=== PATIENT | female | born 1995 | race Caucasian/White ===

== ENCOUNTER 2017-07-14 13:40 | Emergency (ER) | payer BC ==
[~2017-07-14 13:40] MED LIST: Amoxicillin/Clavulanate K 875-125 MG Tab ONE
== END 2017-07-14 14:39 | disposition home or self-care (01) ==
LOC: MW.ED 13:40
DX: K04.7 Periapical abscess without sinus (principal)
CPT/HCPCS: 99283; A9270

== ENCOUNTER 2021-12-04 03:39 | Inpatient (IN) | payer BC ==
[2021-12-04] MEDS ORDERED: Lidocaine 1% 50 ML MDV INJECT PRN (04:00)
[2021-12-04] MEDS ORDERED: Sodium Chloride 0.9% 2.5 ML Syringe FLUSH PRN (04:00)
[2021-12-04] MEDS ORDERED: Misoprostol 200 MCG Tab PO PRN (04:00)
[2021-12-04] MEDS ORDERED: Water For Irrigation,Sterile 1,000 ML Container IRR PRN (04:00)
[2021-12-04] MEDS ORDERED: Methylergonovine 0.2 MG/1 ML Amp IM PRN (04:00)
[2021-12-04] MEDS ORDERED: Sodium Chloride 0.9% 10 ML Syringe FLUSH PRN (04:00)
[2021-12-04] MEDS ORDERED: Oxytocin/0.9 % Sodium Chloride 30 UNIT/500 ML BAG IV SCH (04:00)
[2021-12-04] MEDS ORDERED: Tranexamic Acid 1,000 MG in Sodium Chloride 0.9% 100 ML IV PRN (04:00)
[2021-12-04] MEDS ORDERED: Ondansetron 4 MG/2 ML SDV IVPUSH PRN (04:00)
[2021-12-04] MEDS ORDERED: Sodium Chloride 0.9% 20 ML SDV IV PRN (04:00)
[2021-12-04] MEDS ORDERED: Carboprost Tromethamine 250 MCG/1 ML Amp IM PRN (04:00)
[2021-12-04] MEDS ORDERED: Butorphanol 1 MG/ML SDV IVPUSH PRN (04:00)
[2021-12-04] MEDS: Lactated Ringers 1,000 ML IV SCH ×4 (04:25→14:18)
[2021-12-04] MEDS ORDERED: Ropivacaine HCl/PF 100 ML ONE (08:04)
[2021-12-04] MEDS ORDERED: ePHEDrine 50 MG/ML SDV IVPUSH PRN (08:33)
[2021-12-04] MEDS ORDERED: Ropivacaine HCl/PF 200 MG in Premix Bag 1 BAG EPIDUR SCH (08:45)
[2021-12-04] MEDS ORDERED: Acetaminophen 500 MG Tab PO ONE (11:24)
[2021-12-04] MEDS ORDERED: Benzocaine/Menthol 20%-0.5% Spray 78 GM Cannister TOP PRN (15:57)
[2021-12-04] MEDS ORDERED: Bisacodyl 10 MG Supp RECTAL PRN (15:57)
[2021-12-04] MEDS ORDERED: Ibuprofen 400 MG Tab PO PRN (15:57)
[2021-12-04] MEDS ORDERED: Acetaminophen 500 MG Tab PO PRN (15:57)
[2021-12-04] MEDS ORDERED: Acetaminophen/oxyCODONE 325-5 MG Tab PO PRN (15:57)
[2021-12-04] MEDS: Lanolin 100% Cream 7 GM Tube TOP PRN (17:36)
[2021-12-04] MEDS: Witch Hazel Medicated Pads 40/Jar TOP PRN (17:37)
[2021-12-04] MEDS: Ibuprofen 800 MG Tab PO PRN (17:37)
[2021-12-04] MEDS: Acetaminophen 500 MG Tab PO PRN ×2 (17:39→22:15)
[2021-12-05] MEDS: Ibuprofen 800 MG Tab PO PRN ×3 (02:10→17:12)
[2021-12-05] MEDS: Acetaminophen 500 MG Tab PO PRN ×3 (06:36→20:06)
[2021-12-05] MEDS: Levothyroxine 75 MCG Tab PO SCH (06:38)
[2021-12-05] MEDS: Docusate Sodium 100 MG Cap PO PRN ×2 (08:18→20:06)
[2021-12-05] MEDS: Witch Hazel Medicated Pads 40/Jar TOP PRN (20:05)
[2021-12-06] MEDS: Lanolin 100% Cream 7 GM Tube TOP PRN (07:18)
[2021-12-06] MEDS: Ibuprofen 800 MG Tab PO PRN (07:18)
[2021-12-06] MEDS: Levothyroxine 75 MCG Tab PO SCH (07:18)
[2021-12-06] MEDS: Docusate Sodium 100 MG Cap PO PRN (09:13)
== END 2021-12-06 10:30 | disposition home or self-care (01) | DRG 560 ==
LOC: MW.OBCHECK 03:39 → MW.OB 03:40 → MW.OBCHECK 15:34 → OBSVTOIN 15:34 → MW.OB 19:18
PROVIDERS: ADMIT Obstetrics & Gynecology; ATTEND Obstetrics & Gynecology
PROC: 10E0XZZ Delivery of Products of Conception, External Approach (ICD-10-PCS; principal; 2021-12-04)
PROC: 0HQ9XZZ Repair Perineum Skin, External Approach (ICD-10-PCS; 2021-12-04)
PROC: 0UQMXZZ Repair Vulva, External Approach (ICD-10-PCS; 2021-12-04)
PROC: 3E0R3BZ Introduction of Anesthetic Agent into Spinal Canal, Percutaneous Approach (ICD-10-PCS; 2021-12-04)
PROC: 00HU33Z Insertion of Infusion Device into Spinal Canal, Percutaneous Approach (ICD-10-PCS; 2021-12-04)
PROC: 3E0234Z Introduction of Serum, Toxoid and Vaccine into Muscle, Percutaneous Approach (ICD-10-PCS; 2021-12-05)
DX: O48.0 Post-term pregnancy (principal); O99.284 Endocrine, nutritional and metabolic diseases complicating childbirth; E06.3 Autoimmune thyroiditis; Z37.0 Single live birth; O99.02 Anemia complicating childbirth; D64.9 Anemia, unspecified; Z20.822 Contact with and (suspected) exposure to COVID-19; O70.0 First degree perineal laceration during delivery; O71.82 Other specified trauma to perineum and vulva; O26.893 Other specified pregnancy related conditions, third trimester; Z3A.40 40 weeks gestation of pregnancy; Z67.11 Type A blood, Rh negative
CPT/HCPCS: 01967; 36415; 51702; 59025; 59409; 82803; 85014; 85018; 85027; 85460; 86592; 86850; 86870; 86900; 86901; A9270-GY; J0595; J2590; J2790; J2795; J7120; U0002